=== PATIENT | female | born 1990 | race Asian ===

== ENCOUNTER 2023-10-18 20:11 | Emergency (ER) | payer MEDICAID ==
[~2023-10-18] VITALS: Ht 167.6 cm; Wt 69.4 kg
[2023-10-18 20:36] VITALS: BP 128/74; PULSE 70; RESP 14; TEMP 97.3; O2SAT 98
[2023-10-18 20:40] VITALS: BP 128/74; PULSE 70; RESP 14; TEMP 97.3; O2SAT 98
[2023-10-18 21:01] LABS: BILIRUBIN,URINE NEGATIVE (NEGATIVE); BLOOD, URINE 3+ (NEGATIVE); COLOR,URINE YELLOW (YELLOW); LEUKOCYTE ESTERASE ,URINE TRACE (NEGATIVE); NITRITE, URINE NEGATIVE (NEGATIVE); PH,URINE 6.5 (5.0-9.0); PROTEIN,URINE 1+ (NEGATIVE); UGLUCOSE NEGATIVE (NEGATIVE); UROBILINOGEN,URINE 0.2 EU/dL (0.2 - 1)
[2023-10-18 21:03] LABS: APPEARANCE,URINE SLIGHTLY HAZY (CLEAR)
[2023-10-18 21:04] LABS: BACTERIA,URINE 1+ /HPF (None Seen); MUCUS,URINE None Seen /LPF (None Seen); RBC,URINE 20-50 /HPF (0-5); SQUAMOUS EPITHELIAL CELL,UR 0-3 (FEW) /LPF (0-3 (FEW)); WBC,URINE 0-5 /HPF (0-5)
== END 2023-10-18 22:07 | disposition home or self-care (01) ==
LOC: MED 20:11
DX: N93.9 Abnormal uterine and vaginal bleeding, unspecified (principal)
CPT/HCPCS: 81001; 81025; 99283